=== PATIENT | male | born 1955 | race Caucasian/White ===

== ENCOUNTER 2018-06-09 08:42 | Day surgery (SDC) | payer OTHER, MEDICARE ==
[~2018-06-09] VITALS: Ht 182.9 cm; Wt 119.3 kg
[~2018-06-09 08:42] MED LIST: ALEVE220 MG PO; CYCLOBENZAPRINE10 MG PO; FISH OIL 1,001000 MG PO; FLOMAX0.4 MG PO; FLUTICASONE PRO16 GM; GABAPENTIN300 MG PO; HYDROCODON-ACE1 EAC8 PO; LIPITOR40 MG PO; LISINOPRIL20 MG PO; LORATADINE10 MG PO; MULTIVITAMINS1 EAC7 PO; NORVASC5 MG PO; OMEPRAZOLE40 MG PO; VISTARIL25 MG PO; VITAMIN C500 M1 PO; VITAMIN D35000 UNI1 PO
[2018-06-09] MEDS ORDERED: TYLENOL325 MG PO (08:53)
--- NOTE | 2018-06-09 12:43 | NUR ---
06/09/18 1243 [place] 1238 PATIENT ARRIVES TO PACU AWAKE, DENIES PAIN OR NAUSEA. REPOSITIONS SELF TO BACK. HEAD OF BED ELEVATED. RESP EVEN AND UNLABORED, ROOM AIR SATS >94%.
--- NOTE | 2018-06-10 10:33 | OR ---
[facility] [address], [place] [address] Signed DATE OF OPERATION: 06/09/2018 SURGEON: Radha Lee MD PREOPERATIVE DIAGNOSES: 1. Gastroesophageal reflux symptoms with occasional dysphagia. 2. Colon screening. POSTOPERATIVE DIAGNOSES: 1. Hiatal hernia without sign of esophagitis or Enamorado epithelium. 2. Extensive diverticular changes in sigmoid and left colon, and small polyp of sigmoid. PROCEDURES PERFORMED: 1. Esophagogastroduodenoscopy with biopsy. 2. Total colonoscopy to cecum with cold morcellation polypectomy of sigmoid polyp. ANESTHESIA: Intravenous sedation of fentanyl 150 mcg and versed 8 mg total. INDICATION: A 62-year-old white man, a patient of Dr. Buck Bledsoe in [place], [place], is referred for colon surveillance. His last colonoscopy was a long time ago at least 10 years in [place] and is thought to be normal. He has no symptoms of bleeding, diarrhea, or constipation and no family history of colon cancer. He understands risks of colonoscopy including but not limited to bleeding, infection, and perforation. Additionally, the patient has reflux type symptoms for which he takes Prilosec. He has had some occasional dysphagia. He is admitted to undergo upper endoscopy to better characterize that problem. Understand the risks of bleeding, infection, and perforation. FINDINGS: Upper endoscopy showed no sign of stricture, Enamorado's epithelium or actual inflammation of the esophagus. The stomach and duodenum were normal. The flap valve was poor consistent with small hiatal hernia however. CLOtest was negative. On colonoscopy, the prep was good. Complete colonoscopy was undertaken to the cecum without question. There were numerous diverticula of sigmoid and left colon. There was one small polyp of the sigmoid, which was excised. Electronically Signed By: RADHA LEE MD 06/10/18 1033 PATIENT NAME: ELVER WELDON OPERATIVE REPORT DATE OF : 51 REPORT #: [id number] PHYSICIAN: RADHA LEE MD PCP: BUCK BLEDSOE MD REPORT IS CONFIDENTIAL AND NOT TO BE RELEASED WITHOUT AUTHORIZATION [facility] [address], [place] [address] Signed DESCRIPTION OF PROCEDURE: The patient was brought to the endoscopy suite and placed in lateral decubitus position, given intravenous sedation to the point of slurred speech and nystagmus. Hurricaine hypopharyngeal spray anesthesia had been administered as well. A bite block was placed. After satisfactory sedation, an Olympus video upper endoscope was passed in the hypopharynx. The vocal cords appeared normal. Scope was advanced to the esophagus throughout its length. It was normal. Scope was passed to the stomach, which was insufflated with air. Rugal folds were normal. Antral motility was normal. Pylorus was normal. Scope was passed through into the duodenum, which was normal. Biopsies taken of the duodenum to assess for celiac disease and withdrawn to the stomach for both STEVE and pathologic testing. Retroflexed view undertaken showed a poor flap valve consistent with small hiatal hernia. The scope was withdrawn to the distal esophagus. There was no sign of Enamorado's epithelium. No overt signs of inflammation or stricture. Biopsies were taken nevertheless. The scope was carefully withdrawn and remaining esophagus was normal. Table was rotated and additional sedation given. Digital rectal examination was performed showing no sign of abnormality. An Olympus video colonoscope was passed in the rectum and manipulated throughout the colon. Numerous diverticula were seen in the sigmoid and left colon. Ultimately, the scope was passed to the cecum. The ileocecal valve and appendiceal orifice were normal. The scope was withdrawn from that point. Examination throughout showed no sign of abnormality other than numerous diverticula on the left side and sigmoid. In the mid sigmoid, there was a small polyp with narrow band imaging. It appeared to be adenomatous. It was excised with cold morcellation technique without problem. Further withdrawal of scope showed no other abnormality. Retroflexed view of the rectum was normal. Scope was removed and the patient was taken to recovery room in good condition. CONCLUDING DIAGNOSIS: 1. Clinical reflux symptoms with poor flap valve and small hiatal hernia. No sign of esophagitis or Enamorado epithelium. 2. Extensive diverticular changes of sigmoid and left colon. One small polyp of sigmoid excised. PLAN: 1. Recommend high-fiber diet or Citrucel one scoop p.o. daily. 2. We will check pathology on the polyp to know when to repeat the scope, likely in 3 to 5 years. 3. Continued use of omeprazole on the basis of clinical reflux symptoms. Electronically Signed By: RADHA LEE MD 06/10/18 1033 PATIENT NAME: ELVER WELDON OPERATIVE REPORT DATE OF : 51 REPORT #: [id number] PHYSICIAN: RADHA LEE MD PCP: BUCK BLEDSOE MD REPORT IS CONFIDENTIAL AND NOT TO BE RELEASED WITHOUT AUTHORIZATION [address] [address] Signed Radha Lee MD JM/MODL /[id number] cc: Buck Bledsoe MD Copies: BUCK BLEDSOE MD ~ Electronically Signed By: RADHA LEE MD 06/10/18 1033 PATIENT NAME: ELVER WELDON OPERATIVE REPORT DATE OF : 51 REPORT #: [id number] PHYSICIAN: RADHA LEE MD PCP: BUCK BLEDSOE MD REPORT IS CONFIDENTIAL AND NOT TO BE RELEASED WITHOUT AUTHORIZATION
== END 2018-06-09 13:10 | disposition home or self-care (01) ==
LOC: OPS 08:42 → DS 08:42 → OPS 10:15 → DS 10:15 → OPS 13:10
PROVIDERS: Surgery
PROC: 0DB78ZX Excision of Stomach, Pylorus, Via Natural or Artificial Opening Endoscopic, Diagnostic (ICD-10-PCS; 2018-06-09)
PROC: 0DB38ZX Excision of Lower Esophagus, Via Natural or Artificial Opening Endoscopic, Diagnostic (ICD-10-PCS; 2018-06-09)
PROC: 0DBN8ZX Excision of Sigmoid Colon, Via Natural or Artificial Opening Endoscopic, Diagnostic (ICD-10-PCS; principal; 2018-06-09 10:15)
PROC: 0DB98ZX Excision of Duodenum, Via Natural or Artificial Opening Endoscopic, Diagnostic (ICD-10-PCS; 2018-06-09 10:15)
DX: Z12.11 Encounter for screening for malignant neoplasm of colon (principal); D12.5 Benign neoplasm of sigmoid colon; K57.30 Diverticulosis of large intestine without perforation or abscess without bleeding; K29.50 Unspecified chronic gastritis without bleeding; K44.9 Diaphragmatic hernia without obstruction or gangrene; K21.0 Gastro-esophageal reflux disease with esophagitis; I10 Essential (primary) hypertension; Z88.8 Allergy status to other drugs, medicaments and biological substances; Z79.899 Other long term (current) drug therapy; Z98.1 Arthrodesis status
CPT/HCPCS: 99153; G0500; J2250; J3010; J7120